=== PATIENT | male | born 1960 | race Two or more races ===

== ENCOUNTER 2016-06-20 07:22 | Emergency (ER) | payer SELFPAY ==
[~2016-06-20] VITALS: Ht 175.3 cm; Wt 105.5 kg
[2016-06-20 07:36] VITALS: Ht 175.3 cm; Wt 105.5 kg
[2016-06-20] MEDS ORDERED: morphine 10 MG INJ IM ONE (08:30)
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
[2016-06-20] MEDS ORDERED: HYDR-906 PO (09:41)
[2016-06-20 10:35] VITALS: BP 154/89; PULSE 80; RESP 20; TEMP 98.5
== END 2016-06-20 10:35 | disposition home or self-care (01) ==
LOC: E/R 07:22
DX: S82.425A Nondisplaced transverse fracture of shaft of left fibula, initial encounter for closed fracture (principal); S40.012A Contusion of left shoulder, initial encounter; I10 Essential (primary) hypertension; V89.2XXA Person injured in unspecified motor-vehicle accident, traffic, initial encounter
CPT/HCPCS: 73050; 73590; J2270; 96372